=== PATIENT | male | born 1990 | race Caucasian/White ===

== ENCOUNTER 2019-04-12 16:15 | Emergency (ER) | payer MEDICAID, SELFPAY ==
[2019-04-12 16:19] VITALS: BP 156/83; PULSE 85; RESP 16; TEMP 36.6; O2SAT 100
[2019-04-12] MEDS: Albuterol/Ipratropium 3 ML UPD VIAL UPD (16:52)
[2019-04-12] MEDS: Ibuprofen 600 MG TAB PO (16:53)
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
--- NOTE | 2019-04-12 17:16 | DI.RAD_ITS ---
EXAM: XR CHEST 2V PA LATERAL INDICATION: Pleuritic left-sided chest pain, cough, fever. COMPARISON: RIGHT SHOULDER COMPLETE from 06/07/2017 TECHNIQUE: 2D digital imaging was performed. FINDINGS: The heart size is normal. The lungs are well inflated and clear. No infiltrate or effusion is seen. IMPRESSION: Negative chest x-ray.
--- NOTE | 2019-04-12 17:26 | DI.VRAD_ITS ---
PROCEDURE INFORMATION: Exam: XR Chest, 2 Views Exam date and time: 04/12/2019 5:15 PM Age: 28 years old Clinical history: Cough and fever; Patient HX: Pleuritic left sided chest pain, cough, fever TECHNIQUE: Imaging protocol: XR of the chest Views: 2 views. COMPARISON: CR ABD FLAT UPRIGHT PA CHEST 04/17/2015 2:47 PM FINDINGS: Lungs: Unremarkable. No consolidation. Pleural space: Unremarkable. No pleural effusion. No pneumothorax. Heart/Mediastinum: Unremarkable. No cardiomegaly. Bones/joints: Unremarkable. IMPRESSION: No acute cardiopulmonary process. Dictated and Authenticated by: Pedrito Matute MD. Ordering:LOR Simon MD
== END 2019-04-12 18:30 | disposition home or self-care (01) ==
PROVIDERS: Emergency Provider Physician Assistant
DX: R07.89 Other chest pain (principal); J20.9 Acute bronchitis, unspecified; R50.9 Fever, unspecified; F17.210 Nicotine dependence, cigarettes, uncomplicated
CPT/HCPCS: 87449; 93005; 94640; 99284; 71046; 93010; J7620

== ENCOUNTER 2019-05-06 10:44 | Emergency (ER) | payer MEDICAID, SELFPAY ==
[2019-05-06 10:46] VITALS: BP 141/94; PULSE 71; RESP 12; TEMP 36.9; O2SAT 99
--- NOTE | 2019-05-06 11:21 | ED.GENADUL_ITS ---
Discharge Plan Disposition Patient Disposition: HOME Condition: Stable Discharge Details Chief Complaint: DentalOral Clinical Impression: Dental infection Primary Care Provider: None,None ED Provider: Gwen Norton Home Meds and New Rx's Prescriptions: New clindamycin HCl 150 mg capsule 450 mg PO TID 10 Days Qty: 90 RF: 0 Continued albuterol sulfate 8.5 GM HFA aerosol inhaler 2 puff Inhalation Q4H PRN Qty: 1 RF: 0 Discharge Instructions Instructions: Clindamycin (By mouth), Dental Abscess (ED) Additional Instructions: Please return immediately to the emergency department if you develop any new or worsening symptoms, if your condition does not improve as expected, or if you become otherwise concerned. It is extremely important that you call soon as possible to make an appointment to be seen in follow-up for this visit by your dentist and your primary care doctor. Medical Decision Making Pedrito Munoz is a 28 y/o man with history of asthma who presented to the emergency department with several days of dental pain in setting of chronic poor dentition. On exam patient is well and nontoxic appearing. There is erythema and tenderness of the mucosa adjacent to teeth 19 through 21 without fluctuance, also tenderness of the body of the left mandible in the associated area. No trismus, handling secretions without issue. Concern for dental infection. Exam/history is not consistent with sepsis, abscess, deep space infection, impending airway compromise, meningitis, other acute emergent life-threatening process. Patient has allergy to penicillin, will prescribe clindamycin. Patient has outpatient follow-up with dentist established. I had a lengthy discussion with Patient regarding return to emergency department precautions, home care, and importance of outpatient follow-up. Pt verbalizes understanding of the plan and is amenable. Patient discharged to home with clear plan for outpatient follow-up. All questions were answered. Disposition decision was made weighing the risks and benefits of hospitalization versus outpatient treatment, the risk for further decompensation, and the patient's wishes. Medical Records Medical records reviewed: Yes I reviewed the patient's medical records. HPI General Mode of arrival: ambulatory . Date/Time Provider Initiated Documentation: 05/06/19 11:18 . Limitations to Documentation: no limitations . Information obtained by: patient, RN notes reviewed and old records reviewed . HPI Narrative: Pedrito Munoz is a 28-year-old man with history of asthma presenting to the emergency department with dental pain. Patient reports that he has a history of dental infections, with last dental infection 6 months ago. Patient reports that approximately 3 days ago he noticed pain in the area of teeth 19 through 21. No trauma or inciting event. Patient reports that he has had jaw pain in that area since onset. Patient reports that his pain has been managed well at home with Tylenol. Patient reports that he called his dentist this morning, who requested that he come to the emergency department to be treated with antibiotics, and they would see him in a few days for follow-up. Patient reports that he has had mild left-sided headache since onset of dental pain, not the worst of his life, intermittent, resolved with Tylenol, denies any other pain. He denies fevers, shortness of breath, cough, difficulty swal lowing, vomiting, diarrhea, rash, numbness, weakness. Patient reports that he has had somewhat decreased appetite since onset of pain, but has continued to eat relatively normally and has been drinking fluids well. No recent illness. Related Data Home Medications Medication Instructions Recorded Confirmed albuterol sulfate 2 puff INHALATION Q4H PRN #1 08/26/13 05/06/19 [email or web address] clindamycin HCl 450 mg PO TID 10 Days #90 cap 05/06/19 Previous Rx's Medication Instructions Recorded albuterol sulfate 2 puff INHALATION Q4H PRN #1 08/26/13 [email or web address] clindamycin HCl 450 mg PO TID 10 Days #90 cap 05/06/19 Allergies Allergy/AdvReac Type Severity Reaction Status Date / Time Penicillins Allergy Severe Anaphylaxsi Unverified 05/06/19 10:49 s venom-honey bee Allergy Unverified 05/06/19 10:49 [bee venom (honey bee)] General Stated Complaint: DentalOral LISSET: 4 Review of Systems Narrative: Constitutional: denies fevers Eyes: denies eye pain ENT: denies ear pain, sore throat, reports dental pain Cardiovascular: denies chest pain Respiratory: denies SOB, cough GI: denies abdominal pain, vomiting, diarrhea : denies flank pain MSK: denies back pain, neck pain, arthralgias, myalgias Skin: denies rash Neuro: denies headaches, numbness, weakness [facility] Social History Smoking/Tobacco Use Status: Current every day Tobacco Type: cigarettes Alcohol Intake: current Alcohol Intake frequency: a few times a month Drug use: Current Sobriety Do you feel safe at home: Yes Do you feel safe in your relationship?: Yes Exam Narrative Exam Narrative: Constitutional: well and [id number], pleasant, conversing normally HENT: head atraumatic/normocephalic/normal inspection, mucous membranes moist, poor dentition throughout, tenderness and erythema of mucosa adjacent to teeth 19 through 21, no fluctuance, left mandibular pain and adjacent area, no trismus, no drooling, no pooling of secretions, normal voice, no overlying facial erythema Eyes: conjunctiva normal, sclera normal, pupils 3mm b/l, EOMI Neck: no stridor, full painless ROM, trachea midline Resp: normal work of breathing, LCTAB Cardio: normal rate, normal rhythm, no murmur appreciated Skin: warm, dry, normal color, no rash Neuro: alert, not altered, grossly non-focal, normal tone Ext: Moving all extremities equally Psych: normal mood, normal affect, normal behavior Course Vital Signs Vital signs: Vital Signs Temperature 36.9 C 05/06/19 10:46 Pulse 71 05/06/19 10:46 Respiratory Rate 12 05/06/19 10:46 Blood Pressure 141/94 H 05/06/19 10:46 Pulse Oximetry 99 05/06/19 10:46 Temperature 36.9 C 05/06/19 10:46 Temperature Source Temporal Artery Scan 05/06/19 10:46 Pulse 71 05/06/19 10:46 Respiratory Rate 12 05/06/19 10:46 Respiratory Effort Non-Labored 05/06/19 10:48 Blood Pressure 141/94 H 05/06/19 10:46 Blood Pressure Position Sitting 05/06/19 10:46 Pulse Oximetry 99 05/06/19 10:46 Oxygen Delivery Method Room Air 05/06/19 10:46 Oxygen Flow Rate 0 05/06/19 10:46 Pain Level 4 05/06/19 10:46
[2019-05-06] MEDS: Clindamycin 150 MG CAP 450 MG PO (11:24)
== END 2019-05-06 11:26 | disposition home or self-care (01) ==
PROVIDERS: Emergency Provider Student in an Organized Health Care Education/Training Program
DX: R68.84 Jaw pain (principal); K04.7 Periapical abscess without sinus
CPT/HCPCS: 99283

== ENCOUNTER 2019-06-27 10:37 | Emergency (ER) | payer MEDICAID, SELFPAY ==
[2019-06-27 10:47] VITALS: BP 159/68; PULSE 72; RESP 18; TEMP 36.6; O2SAT 97
--- NOTE | 2019-06-27 10:59 | W.ED.GENAD ---
Discharge Plan Disposition Patient Disposition: HOME Condition: Stable Discharge Details Chief Complaint: DentalOral Clinical Impression: Dental caries Primary Care Provider: None,None ED Provider: Debbie Lewis Home Meds and New Rx's Prescriptions: New metronidazole [Flagyl] 500 mg tablet 500 mg PO BID 7 Days Qty: 14 RF: 0 Continued albuterol sulfate 8.5 GM HFA aerosol inhaler 2 puff Inhalation Q4H PRN Qty: 1 RF: 0 Discharge Instructions Instructions: Dental Caries (ED) Additional Instructions: Take medications as directed. Follow up with primary care provider in 3-5 days. Return to ED sooner if any worsening or concerns. Increase oral fluids. Follow-up with the dentist as instructed. Referrals: Kimmie Morales [Emergency Nurse] - Discharge Data Discharge Date/Time-TO BE ENTERED AT DEPARTURE: 06/27/19 11:17 Medical Decision Making 28-year-old male presents with oral abscess. He states that on his upper left frontal gum he had an abscess that popped with drainage yesterday. He reports being seen by a new dentist. He has extensive poor dentition throughout. He states he is in the process of getting all of his teeth pulled. There is no area of fluctuance noted there is a small reddened area to his mucosa. He is handling secretions without difficulty, has a clear voice. No lymphadenopathy no facial swelling. He is speaking in full sentences. He was seen for similar in April and was prescribed clindamycin which he reports that he took as directed. Patient was prescribed Flagyl 500 mg twice a day x7 days. At this time he has no area of fluctuance that indicates a need for I&D. He is nontoxic-appearing. Patient was given community resources for dentists in the area by staff air tactical officer. HPI General Mode of arrival: ambulatory. Date/Time Provider Initiated Documentation: 06/27/19 10:39. Limitations to Documentation: no limitations. Information obtained by: patient. HPI Narrative: 28-year-old male presents with oral abscess. He states that on his upper left frontal gum he had an abscess that popped with drainage yesterday. He reports being seen by a new dentist. He has extensive poor dentition throughout. He states he is in the process of getting all of his teeth pulled. There is no area of fluctuance noted there is a small reddened area to his mucosa. He is handling secretions without difficulty, has a clear voice. No lymphadenopathy no facial swelling. He is speaking in full sentences. He was seen for similar in April and was prescribed clindamycin which he reports that he took as directed. Related Data Home Medications Medication Instructions Recorded Confirmed albuterol sulfate 2 puff INHALATION Q4H PRN #1 08/26/13 06/27/19 [email or web address] metronidazole [Flagyl] 500 mg PO BID 7 Days #14 tab 06/27/19 Previous Rx's Medication Instructions Recorded albuterol sulfate 2 puff INHALATION Q4H PRN #1 08/26/13 [email or web address] metronidazole [Flagyl] 500 mg PO BID 7 Days #14 tab 06/27/19 Allergies Allergy/AdvReac Type Severity Reaction Status Date / Time Penicillins Allergy Severe Anaphylaxsi Unverified 06/27/19 10:51 s venom-honey bee Allergy Unverified 06/27/19 10:51 [bee venom (honey bee)] General Stated Complaint: DentalOral LISSET: 4 Review of Systems Narrative: Constitutional: Negative for weight loss, alert and oriented, well groomed, normal body habitus, appears comfortable. HEENT: Denies trauma, headaches, blurry vision, nasal discharge, sore throat, trouble swallowing. Poor dentition noted reports dental abscess. Chest: Denies chest pain, palpitations, irregular rhythm, hypertension. Respiratory: Denies Shortness of breath, cough, hemoptysis. GI: Denies abdominal pain, nausea, vomiting, diarrhea, constipation. : Denies dysuria, hematuria, flank pain, rectal bleeding. Neuro: Denies dizziness, blurry vision, weakness, syncope, headache or facial numbness. Hematologic: Denies easy bruising, intolerance to heat or cold, hair loss. [facility] Social History Smoking/Tobacco Use Status: Current every day Tobacco Type: smokeless tobacco Alcohol Intake: former Drug use: Daily Substance use type: marijuana Do you feel safe at home: Yes Do you feel safe in your relationship?: Yes Exam Narrative Exam Narrative: Constitutional: Allert and oriented x3. Appears stated age. Normal body habitus. Head: Normocephalic, no trauma. Eyes: Pupils PERRLA, Red reflex noted, EOM's intact. Eyelids symmetrical withour lesions, discharge, or swelling. ENT: Bilateral TM's WNL, External ear normal to inspection, no mastoid TTP, swelling, or erythema, Nasal turbinates WNL, no nasal discharge. Extensive poor dentition, erythemic area noted to his left frontal gum no drainage or area of fluctuance noted, Posterior pharynx WNL, no exudate. Chest: RRR, Normal S1, S2, distal pulses intact. Resp: Lungs clear to auscultation bilaterally, no wheezes, rales, or rhonchi. Musculoskeletal: Normal gait, 5/5 strength to all four extremities. Skin: No suspicious rashes or lesions. Capillary refill ?2 sec. Neurologic: Cranial nerves II-XII intact. Alert and oriented x 3. DTR's intact. Hematologic/Lymphatic: No ecchymosis, no lymphadenopathy. Course Vital Signs Vital signs: Vital Signs Temperature 36.6 C 06/27/19 10:47 Pulse 72 06/27/19 10:47 Respiratory Rate 18 06/27/19 10:47 Blood Pressure 159/68 H 06/27/19 10:47 Pulse Oximetry 97 06/27/19 10:47 Temperature 36.6 C 06/27/19 10:47 Temperature Source Temporal Artery Scan 06/27/19 10:47 Pulse 72 06/27/19 10:47 Respiratory Rate 18 06/27/19 10:47 Respiratory Effort Non-Labored 06/27/19 10:51 Blood Pressure 159/68 H 06/27/19 10:47 Blood Pressure Position Sitting 06/27/19 10:47 Pulse Oximetry 97 06/27/19 10:47 Oxygen Delivery Method Room Air 06/27/19 10:47 Oxygen Flow Rate 0 06/27/19 10:47 Pain Level 1 06/27/19 10:47
== END 2019-06-27 11:17 | disposition home or self-care (01) ==
LOC: ER 11:16
PROVIDERS: Emergency Provider Registered Nurse Emergency
DX: K02.9 Dental caries, unspecified (principal); R68.84 Jaw pain
CPT/HCPCS: 99283